=== PATIENT | female | born 1990 | race African-American/Black ===

== ENCOUNTER 2017-03-23 17:06 | Emergency (ER) | payer MEDICAID, OTHER ==
[~2017-03-23] VITALS: Ht 175.3 cm; Wt 81.0 kg
[2017-03-23 19:45] VITALS: BP 129/92
[2017-03-23] MEDS ORDERED: KETOROLAC 60MG/2ML VIAL IM ONE (19:45)
== END 2017-03-23 20:15 | disposition home or self-care (01) ==
LOC: ER 17:31
DX: M54.6 Pain in thoracic spine (principal)
CPT/HCPCS: 81025; 96372; 99283; J1885